=== PATIENT | female | born 1980 | race Caucasian/White ===

== ENCOUNTER 2018-05-13 12:26 | Emergency (ER) | payer OTHER, SELFPAY ==
[2018-05-13 12:30] VITALS: BP 124/86; PULSE 99; RESP 14; TEMP 38.1; O2SAT 98
[2018-05-13 12:42] VITALS: TEMP 38.1
[2018-05-13] MEDS: ACETAMINOPHEN 325 MG TABLET 975 MG PO (12:42)
[2018-05-13 13:06] LABS: Influenza A and B by PCR Rapid Negative (Negative)
--- NOTE | 2018-05-13 13:44 | ED.URI ---
HPI - URI/Sore Throat <WILMA Werner - Last Filed: 05/13/18 21:52> General Chief Complaint: Upper Respiratory Symptoms Stated Complaint: BODY ACHE SORE THROAT FEVER Time Seen by Provider: 05/13/18 13:13 Source: patient Mode of arrival: ambulatory Limitations: no limitations History of Present Illness HPI Narrative: 37-year-old healthy female that is a nonsmoker here for complaint of having sore throat fever and generalized malaise over the past couple of days. Fever has reduced today. She has been tolerating p.o. fluid. No nausea or vomiting. No abdominal pain. He is ambulatory into the emergency room. No cough no runny nose. She reports she has had some swollen tonsils redness to the back of her throat and exudate. No other concerns or complaints at this timeframe. She states that her had similar symptoms a week and half ago. No other family members or contacts with similar symptoms MD Complaint: sore throat Related Data Previous Rx's Medication Instructions Recorded amoxicillin 500 mg PO BID #20 tab 05/13/18 Allergies Allergy/AdvReac Type Severity Reaction Status Date / Time No Known Drug Allergies Allergy Verified 05/13/18 12:37 Review of Systems <WILMA Werner - Last Filed: 05/13/18 21:52> Constitutional Reports fever(s) and Reports malaise Eyes Denies change in vision, Denies eye discharge, Denies irritation and Denies loss of vision ENT Ears, Nose, Mouth, and Throat: Reports sore throat Cardiovascular Denies chest pain, Denies irregular heart rhythm, Denies lightheadedness, Denies palpitations, Denies dyspnea, Denies dyspnea on exertion and Denies orthopnea Respiratory Denies cough, Denies dyspnea, Denies dyspnea on exertion and Denies wheezing Gastrointestinal Gastrointestinal: Denies abdominal pain, Denies change in bowel habits, Denies diarrhea, Denies nausea and Denies vomiting Genitourinary Denies hematuria, Denies flank pain, Denies urinary incontinence and Denies urinary urgency Musculoskeletal Denies back pain, Denies muscle weakness, Denies numbness and Denies tingling Integumentary/Breasts Denies pruritus, Denies erythema, Denies rash and Denies wounds Neurologic Denies confusion, Denies loss of vision, Denies numbness and Denies tingling Psychiatric Denies anxiety, Denies confusion, Denies depression, Denies homicidal ideation and Denies suicidal ideation Endocrine Denies palpitations Hematologic/Lymphatic Denies easy bruising Allergic/Immunologic Denies wheezing PFSH <WILMA Werner - Last Filed: 05/13/18 21:52> Social History Smoking Status: Never smoker Social History Smoking Status: Never smoker Exam <WILMA Werner - Last Filed: 05/13/18 21:52> Initial Vital Signs Initial Vital Signs: Vital Signs Temperature 100.5 F H 05/13/18 12:30 Pulse Rate 99 H 05/13/18 12:30 Respiratory Rate 14 05/13/18 12:30 Blood Pressure 124/86 05/13/18 12:30 Pulse Oximetry 98 05/13/18 12:30 Const General: cooperative and well developed Nutritional Appearance: well nourished Orientation: alert, awake, oriented x3 and not confused HENMT Mouth: oral mucosae normal and moist mucous membranes Throat: posterior oropharynx abnormal (Bilateral tonsils swollen with erythema and exudate) edema, erythema and exudates Eyes Conjunctivae: conjunctivae normal Sclera: sclerae normal Pupils: PERRL EOM: EOM intact bilaterally Resp Effort & Inspection: normal respiratory effort, able to speak in complete sentences, no respiratory distress and no use of accessory muscles Auscultation: clear to auscultation bilaterally, no rales, no rhonchi and no wheezes Cardio Rate: regular rate Rhythm: regular rhythm Heart Sounds: no click, no gallops, no murmurs and no rubs Pulses: normal peripheral pulses GI Inspection: non-distended Palpation: soft, no hepatosplenomegaly, No guarding, No pulsatile mass and No tender Auscultation: normal bowel sounds Skin General: no rashes or lesions noted, No jaundice and No petechiae Neuro General: alert, oriented x3, gait normal and no focal motor deficits Speech: speech normal <Rosalino Mack DO - Last Filed: 05/14/18 18:22> Initial Vital Signs Initial Vital Signs: Vital Signs Temperature 100.5 F H 05/13/18 12:30 Pulse Rate 99 H 05/13/18 12:30 Respiratory Rate 14 05/13/18 12:30 Blood Pressure 124/86 05/13/18 12:30 Pulse Oximetry 98 05/13/18 12:30 Course <WILMA Werner - Last Filed: 05/13/18 21:52> Orders Ordered: Discontinued Medications Acetaminophen (Tylenol) 975 mg PO NOW ONE Stop: 05/13/18 12:42 Last Admin: 05/13/18 12:42 Dose: 975 mg Vital Signs - 8 hr 05/13/18 14:08 Temperature 99.1 F Pulse Rate 87 Respiratory Rate 16 Blood Pressure 122/77 Pulse Oximetry 99 <Rosalino Mack DO - Last Filed: 05/14/18 18:22> Orders Ordered: Discontinued Medications Acetaminophen (Tylenol) 975 mg PO NOW ONE Stop: 05/13/18 12:42 Last Admin: 05/13/18 12:42 Dose: 975 mg Vital Signs - 8 hr 05/13/18 14:08 Temperature 99.1 F Pulse Rate 87 Respiratory Rate 16 Blood Pressure 122/77 Pulse Oximetry 99 MDM - URI/Sore Throat <WILMA Werner - Last Filed: 05/13/18 21:52> Lab Data Lab Results 05/13/18 Range/Units 12:41 Influenza A & B (PCR) Negative (Negative) Point of Care Testing Rapid Strep A Positive MDM Narrative Medical decision making narrative: Rapid strep test was obtained and was positive. Influenza swab was obtained and was negative. She is treated with amoxicillin. [id number] Tylenol or Motrin as needed for discomfort or fever. Plenty of fluids and rest. Salt water gargles to help with inflammation. For any worsening symptoms return emergency room. <Rosalino Mack DO - Last Filed: 05/14/18 18:22> Lab Data Lab Results 05/13/18 Range/Units 12:41 Influenza A & B (PCR) Negative (Negative) Point of Care Testing Rapid Strep A Positive Discharge Plan Departure Patient Disposition: Home Clinical Impression: Acute streptococcal pharyngitis Discharge Date/Time: 05/13/18 14:09 Interventions: ED Discharge Assessment Last Done: 05/13/18 14:08 Instructions: DI for Strep Throat Activity Restrictions/Additional Instructions: Rapid strep test was obtained and was positive. Influenza swab was obtained and was negative. You are treated with amoxicillin in antibiotic use as directed. [id number] Tylenol or Motrin as needed for discomfort or fever. Plenty of fluids and rest. Salt water gargles to help with inflammation. For any worsening symptoms return emergency room. Prescriptions: New amoxicillin 500 mg tablet 500 mg PO BID Qty: 20 RF: 0 Referrals: [facility] [Provider Group] <Rosalino Mack DO - Last Filed: 05/14/18 18:22> Cosign ED Attending Cosignature Attestation: I was immediately available in the department for consultation. Documentation has been reviewed. I agree with assessment and plan.
[2018-05-13 14:08] VITALS: BP 122/77; PULSE 87; RESP 16; TEMP 37.3; O2SAT 99
== END 2018-05-13 14:09 | disposition home or self-care (01) ==
PROVIDERS: Emergency Medicine; Emergency Provider Nurse Practitioner Family
DX: J02.0 Streptococcal pharyngitis (principal)
CPT/HCPCS: 87400; 87880; 99282; 99283

== ENCOUNTER 2018-06-07 13:11 | Emergency (ER) | payer OTHER, SELFPAY ==
[2018-06-07 13:20] VITALS: BP 113/89; PULSE 83; RESP 16; TEMP 36.8; O2SAT 100; BMI 25.7
[2018-06-07 17:05] VITALS: BP 126/87; PULSE 89; RESP 17; O2SAT 100
--- NOTE | 2018-06-07 17:55 | ED_ITS ---
HPI - Allergic Reaction <WILMA Werner - Last Filed: 06/07/18 21:54> General Chief complaint: Allergic Reaction Stated complaint: allergic reaction Time Seen by Provider: 06/07/18 16:29 Source: patient Mode of arrival: ambulatory Limitations: no limitations History of Present Illness HPI narrative: 37-year-old healthy female that is a nonsmoker here for complaint of having redness to her face over the past several days. She states she has also had itchiness to her eye sent. Rash is around her cheeks and into her orbits. She states that she tried Zyrtec to see if it helps with her symptoms. She states that has not helped as at this time she is going to try Benadryl tonight. She states she does have a history of having seasonal allergies. She was recently treated last month for strep pharyngitis. She completed her antibiotic regimen. She reports that she still has a sore throat. She denies any fevers. Positive p.o. intake. No nausea vomiting. MD complaint: allergic reaction Symptoms: rash and itching Related Data Previous Rx's Medication Instructions Recorded amoxicillin 500 mg PO BID #20 tab 05/13/18 olopatadine [Patanol] See Rx Instructions .ROUTE 06/07/18 .COMPLEX #5 ml Allergies Allergy/AdvReac Type Severity Reaction Status Date / Time No Known Drug Allergies Allergy Verified 05/13/18 12:37 Review of Systems <WILMA Werner - Last Filed: 06/07/18 21:54> Constitutional Denies chills, Denies fever(s), Denies lethargy and Denies weakness Eyes Denies change in vision, Denies eye discharge, Denies irritation and Denies loss of vision ENT Comments: Rash to her face with it Cardiovascular Denies chest pain, Denies irregular heart rhythm, Denies lightheadedness, Denies palpitations, Denies dyspnea, Denies dyspnea on exertion and Denies orthopnea Respiratory Denies cough, Denies dyspnea, Denies dyspnea on exertion and Denies wheezing Gastrointestinal Gastrointestinal: Denies abdominal pain, Denies change in bowel habits, Denies diarrhea, Denies nausea and Denies vomiting Musculoskeletal Denies back pain, Denies muscle weakness, Denies numbness and Denies tingling Integumentary/Breasts Denies pruritus, Denies erythema, Denies rash and Denies wounds Neurologic Denies loss of vision, Denies numbness, Denies tingling and Denies weakness Endocrine Denies palpitations Hematologic/Lymphatic Denies easy bruising Allergic/Immunologic Denies wheezing PFSH <WILMA Werner - Last Filed: 06/07/18 21:54> Social History Smoking Status: Never smoker Exam <WILMA Werner - Last Filed: 06/07/18 21:54> Initial Vital Signs Initial Vital Signs: Vital Signs Temperature 98.2 F 06/07/18 13:20 Pulse Rate 83 06/07/18 13:20 Respiratory Rate 16 06/07/18 13:20 Blood Pressure 113/89 06/07/18 13:20 Pulse Oximetry 100 06/07/18 13:20 Const General: cooperative and well developed Nutritional Appearance: well nourished Orientation: alert, awake, oriented x3 and not confused HENMT Face and sinus: other (Macular erythematous rash to her face to bilateral cheeks and forehead and ) Mouth: oral mucosae normal and moist mucous membranes Throat: posterior oropharynx abnormal erythema Eyes Conjunctivae: conjunctivae normal Sclera: sclerae normal Pupils: PERRL EOM: EOM intact bilaterally Resp Effort & Inspection: normal respiratory effort, able to speak in complete sentences, no respiratory distress and no use of accessory muscles Auscultation: clear to auscultation bilaterally, no rales, no rhonchi and no wheezes Cardio Rate: regular rate Rhythm: regular rhythm Heart Sounds: no click, no gallops, no murmurs and no rubs Pulses: normal peripheral pulses Skin General: no rashes or lesions noted, No jaundice and No petechiae Neuro General: alert, oriented x3, gait normal and no focal motor deficits Speech: speech normal <Rosalino Mack DO - Last Filed: 06/08/18 00:22> Initial Vital Signs Initial Vital Signs: Vital Signs Temperature 98.2 F 06/07/18 13:20 Pulse Rate 83 06/07/18 13:20 Respiratory Rate 16 06/07/18 13:20 Blood Pressure 113/89 06/07/18 13:20 Pulse Oximetry 100 06/07/18 13:20 Course <WILMA Werner - Last Filed: 06/07/18 21:54> Orders Ordered: Discontinued Medications Penicillin G Benzathine (Bicillin L-A) 1,200,000 unit IM NOW ONE Stop: 06/07/18 17:52 Last Admin: 06/07/18 18:46 Dose: 1,200,000 unit Vital Signs - 8 hr 06/07/18 17:05 06/07/18 18:43 Pulse Rate 89 84 Respiratory Rate 17 15 Blood Pressure [Left Arm] 126/87 121/93 H Pulse Oximetry 100 100 <Rosalion Mack DO - Last Filed: 06/08/18 00:22> Orders Ordered: Discontinued Medications Penicillin G Benzathine (Bicillin L-A) 1,200,000 unit IM NOW ONE Stop: 06/07/18 17:52 Last Admin: 06/07/18 18:46 Dose: 1,200,000 unit Vital Signs - 8 hr 06/07/18 17:05 06/07/18 18:43 Pulse Rate 89 84 Respiratory Rate 17 15 Blood Pressure [Left Arm] 126/87 121/93 H Pulse Oximetry 100 100 MDM - Allergic Reaction <WILMA Werner - Last Filed: 06/07/18 21:54> Lab Data Point of Care Testing Rapid Strep A Positive MDM Narrative Medical decision making narrative: Rapid strep test was obtained was positive. She is treated with penicillin G IM. Differential of her a rash between allergic response or secondary to the strep throat. [id number]-[id number] Zyrtec as needed nasal congestion and itching. She is also prescribed Patanol to help with itching to her eyes. Follow up with her primary care provider. Return emergency room for any worsening symptoms <Rosalino Mack DO - Last Filed: 06/08/18 00:22> Lab Data Point of Care Testing Rapid Strep A Positive Discharge Plan Departure Patient Disposition: Home Clinical Impression: History of strep pharyngitis, Allergic conjunctivitis of both eyes Allergic rhinitis Qualifiers: Allergic rhinitis trigger: unspecified Allergic rhinitis seasonality: seasonal Qualified Code(s): J30.2 - Other seasonal allergic rhinitis Discharge Date/Time: 06/07/18 19:13 Interventions: ED Discharge Assessment Last Done: 06/07/18 18:53 Instructions: DI for Allergic Rhinitis Activity Restrictions/Additional Instructions: Strep test was obtained today and was positive. You are treated with antibiotic penicillin shot. Differential rash between the strep causing the rash or due to allergies. Use Zyrtec for any seasonal allergy symptoms such as sneezing and nasal congestion. You also prescribed Patanol to help with itching of the eyes use to use as directed. Follow up with primary care provider later this week for re-evaluation. Ensure that you change your toothbrush. For any worsening symptoms return emergency room. Prescriptions: New olopatadine [Patanol] 0.1 % drops See Rx Instructions .ROUTE .COMPLEX Qty: 5 RF: 0 No Action amoxicillin 500 mg tablet 500 mg PO BID Qty: 20 RF: 0 Referrals: [facility] [Provider Group] <Rosalino Mack, - Last Filed: 06/08/18 00:22> Cosign ED Attending Treva Attestation: I was immediately available in the department for consultation. Documentation has been reviewed. I agree with assessment and plan.
[2018-06-07 18:43] VITALS: BP 121/93; PULSE 84; RESP 15; O2SAT 100
[2018-06-07] MEDS: PENICILLIN G BENZATHINE 1,200,000 UNIT/2 ML SYRINGE 1200000 UNIT IM (18:46)
--- NOTE | 2018-06-07 18:46 | PC.NURSE ---
coodrdinatortenzin made med/ no bar code given by pharmacy after multiple attempts/ med verifed by coordator and myself
--- NOTE | 2018-06-08 08:43 | PC.NURSE ---
[facility], spoke with dr justin. pharmacy error for IM Pcn given yesterday was for short acting, pt needing long acting IM. called pt, explained, pt will return for Long acting Im antibiotics. dr justin aware of pts plan, approved to pt coming, will give Im antibiotics.
--- NOTE | 2018-06-08 11:25 | PC.NURSE ---
PCN G BENZATHINE 1200,000 IM. RUG 1131 with red facial rash, states worsen today. hr 84 rr 18 125/83 100 sat.
== END 2018-06-07 19:13 | disposition home or self-care (01) ==
PROVIDERS: Emergency Provider Nurse Practitioner Family
DX: J02.0 Streptococcal pharyngitis (principal); H10.13 Acute atopic conjunctivitis, bilateral; J30.2 Other seasonal allergic rhinitis
CPT/HCPCS: 87880; 99282; 99283; J0561